=== PATIENT | male | born 1960 | race Caucasian/White ===

== ENCOUNTER 2016-03-04 15:08 | Outpatient (CLI) | payer OTHER ==
--- NOTE | 2016-03-04 15:43 | DIAGNOSTIC IMAGING REPORT ---
PROCEDURE: XR CHEST 2 VIEW INDICATION: CHEST PAIN TECHNIQUE: PA and lateral views. COMPARISON: Chest 01/07/2016 FINDINGS: Lungs are clear. Heart and mediastinum are normal. Thorax is normal. IMPRESSION: 1. Negative chest.
== END 2016-03-04 23:00 ==
LOC: XR SRH 15:08
DX: R07.9 Chest pain, unspecified (principal)

== ENCOUNTER 2016-03-06 06:37 | Outpatient (CLI) | payer OTHER | END 2016-03-06 23:00 | LOC: LAB SRH 06:37 | DX: D64.9 Anemia, unspecified (principal); R07.9 Chest pain, unspecified; I25.10 Atherosclerotic heart disease of native coronary artery without angina pectoris | CPT/HCPCS: 90074; 91320; 95059; 95150 ==